=== PATIENT | female | born 1985 | race Caucasian/White ===

== ENCOUNTER → 2016-08-24 | Outpatient (CLI) | payer OTHER ==
--- NOTE | 2016-08-24 23:19 | REP ---
Clinical: Acute cough . Comparison: 08/14/2016 . Technique: PA and lateral. Findings: The mediastinum and cardiac silhouette are normal. The lung lutz are clear and without acute consolidation, effusion, or pneumothorax. The skeletal structures are intact and normal. Impression: 1. No acute cardiopulmonary process. Signed by Trenton Pacheco MD 08/24/2016 11:11 P
== END | disposition home or self-care (01) ==
LOC: M WUC 13:42
PROVIDERS: ATTEND Internal Medicine Cardiovascular Disease
DX: R05 Cough (principal)

== ENCOUNTER → 2016-10-06 | Outpatient (CLI) | payer BC ==
[2016-10-06 13:48] LABS: THYROID PEROXIDASE ANTIBODY 48.8 U/ML (<60.0)
[2016-10-06 13:50] LABS: FREE T4 1.26 NG/DL (0.76-1.46)
== END | disposition home or self-care (01) ==
LOC: M SMT 10:16
PROVIDERS: ATTEND Family Medicine
DX: E03.9 Hypothyroidism, unspecified (principal)